=== PATIENT | female | born 1975 | race Caucasian/White ===

== ENCOUNTER → 2020-11-27 16:48 | Outpatient (CLI) | payer BC, SELFPAY ==
--- NOTE | ~2020-11-27 | MM_ITS ---
EXAMINATION: MM scrn agustin implant BI w astrid HISTORY: Screening mammogram TECHNIQUE: Craniocaudal and mediolateral oblique 3-D tomosynthesis images with implant displacement a nd synthetic 2-D images were generated. Craniocaudal and mediolateral oblique views of the breasts wi thout implant displacement were obtained using full field digital mammography. CAD analysis was submi tted and interpreted. COMPARISON: 03/25/2019 bilateral implant digital screening mammogram 10/12/2018 and 02/01/19352017 right diagnostic implant digital mammogram and right ultrasound examinati ons 02/16/2018, 02/03/2017 bilateral implant digital screening mammogram examinations BREAST PARENCHYMAL COMPOSITION: The breasts are heterogeneously dense, which may obscure small masses . FINDINGS: Status post bilateral augmentation mammoplasty. There is no evidence of suspicious mass, ca lcification, or architectural distortion to suggest malignancy in either breast. There has been no hernandez spicious interval change. IMPRESSION: 1. No mammographic evidence of malignancy. 2. Recommend routine screening mammography in one year. BI-RADS Category 1: Negative Reviewed, dictated and finalized at location A.
== END ==
DX: Z12.31 Encounter for screening mammogram for malignant neoplasm of breast (principal)
CPT/HCPCS: 77063; 77067

== ENCOUNTER → 2022-02-28 11:13 | Outpatient (CLI) | payer BC, SELFPAY ==
--- NOTE | ~2022-02-28 | MM_ITS ---
EXAMINATION: MM scrn agustin implant BI w astrid HISTORY: Screening mammogram TECHNIQUE: Craniocaudal and mediolateral oblique 3-D tomosynthesis images with implant displacement a nd synthetic 2-D images were generated. Craniocaudal and mediolateral oblique views of the breasts wi thout implant displacement were obtained using full field digital mammography. CAD analysis was submi tted and interpreted. COMPARISON: Comparison to multiple prior studies sequentially, with oldest reviewed study dated 01/2017. BREAST PARENCHYMAL COMPOSITION: The breasts are heterogenously dense, which may obscure small masses FINDINGS: There is no evidence of suspicious mass, calcification, or architectural distortion to sugg est malignancy in either breast. There has been no suspicious interval change. IMPRESSION: 1. No mammographic evidence of malignancy. 2. Recommend routine screening mammography in one year. BI-RADS Category 1: Negative Reviewed, dictated and finalized at location A.
== END ==
DX: Z12.31 Encounter for screening mammogram for malignant neoplasm of breast (principal)
CPT/HCPCS: 77063; 77067

== ENCOUNTER 2023-05-29 00:22 | Day surgery (SDC) | payer BC, SELFPAY ==
[2023-05-17 14:21] VITALS: BMI 27.5
[2023-05-29 08:20] VITALS: BP 110/68; PULSE 73; RESP 18; TEMP 36.5; O2SAT 100
[2023-05-29] MEDS: LACTATED RINGERS 1,000 ML 150 ML IV CONT (08:29)
--- NOTE | 2023-05-29 08:42 | PM.HPGS ---
History of Present Illness History of Present Illness Consent: Risks, benefits, and alternatives have been discussed and questions answered. Patient agrees to proceed with procedure. Chief complaint: neoplasm screening Narrative: Zoe Fox is a 48 year old female here for first screening colonoscopy Review of Systems Constitutional: Constitutional: Denies headache(s) and Denies weakness Eyes: Eyes: Denies blurry vision ENT: Reports Normal hearing present, Denies headache(s) and Denies neck pain Cardiovascular: Cardiovascular: Denies chest pain and Denies dyspnea Respiratory: Respiratory: Denies dyspnea Gastrointestinal: Gastrointestinal: Reports no additional gastrointestinal complaints Genitourinary: Genitourinary: Denies dysuria Musculoskeletal: Musculoskeletal: Denies neck pain Integumentary/Breasts: Skin/Breast: Denies dry skin Neurologic: Reports Normal hearing present, Denies headache(s) and Denies weakness Psychiatric: Psychiatric: Denies anxiety Endocrine: Endocrine: Denies change in body appearance Hematologic/Lymphatic: Hematologic/Lymphatic: Denies easy bleeding Allergic/Immunologic: Allergic/Immunologic: Denies urticaria [facility] Past Medical History Medical History (Updated 05/29/23 @ 08:43 by Rogerio Malik MD) Colon cancer screening Social History Social History (System 08/13/21 @ 12:03 by David López) Smoking status: Never smoker Alcohol intake: current Drinks per week: 2 Alcohol use details: DRINKS Substance use: current Substance use type: does not use Living arrangements: with family Spiritual care concerns: No Meds Home Medications and Allergies Home Medications Medication Instructions Recorded Confirmed Type No Home Medications 05/17/23 05/17/23 History Allergies Allergy/AdvReac Type Severity Reaction Status Date / Time No Known Allergies Allergy Verified 05/29/23 08:13 Vital Signs Vital Signs - 24 hr 05/29/23 08:20 Temperature 97.7 F Pulse Rate 73 Respiratory Rate 18 Blood Pressure 110/68 Pulse Oximetry 100 Oxygen Delivery Room Air Exam Const: General: comfortable and no acute distress HENMT: Face/Nose/Sinus: Normal nares present Eyes: General: appearance normal, both eyes and all related structures Neck: Neck: no JVD Resp: Auscultation: clear to auscultation bilaterally Cardio: Rate: regular rate Rhythm: regular rhythm GI: Inspection: non-distended GI Palp: Yes Soft to palpation Skin: General skin exam: normal color Neuro: General: gait normal Speech: normal speech Extrem: General: normal to inspection Psych: Mental Status: mental status grossly normal Assessment and Plan Assessment and plan (1) Colon cancer screening: Code(s): Z12.11 - Encounter for screening for malignant neoplasm of colon Status: Acute Assessment and Plan: colonoscopy
--- NOTE | 2023-05-29 08:42 | WPDANESEPPF ---
Anes - Initial Pre Proc Eval Procedure: Operation Date: 05/29/23 09:30 Proposed Procedures p Screening Colonoscopy - Rogerio Malik MD Date/Time: 05/29/23 08:42 Surgeon: Rogerio Malik MD Pre Op Diagnosis: neoplasm screening Patient Data Age: 48 Gender: F Height: 1.63 m Weight: 72.7 kg Last Vital Signs Temp 97.7 F 05/29/23 08:20 Pulse 73 05/29/23 08:20 Resp 18 05/29/23 08:20 BP 110/68 05/29/23 08:20 Pulse Ox 100 05/29/23 08:20 O2 Del Method Room Air 05/29/23 08:20 Allergies Allergy/AdvReac Type Severity Reaction Status Date / Time No Known Allergies Allergy Verified 05/29/23 08:13 Home Medications Medication Instructions Recorded Confirmed Type No Home Medications 05/17/23 05/17/23 History Patient hx anesthesia problems: none Family hx anesthesia problems: none Results Review: All pre-operative results and documents have been reviewed as part of the pre-operative evaluation. [facility] Past Medical History Medical History (Updated 05/29/23 @ 08:43 by Rogerio Malik MD) Colon cancer screening Social History Social History (System 08/13/21 @ 12:03 by David López) Smoking status: Never smoker Alcohol intake: current Drinks per week: 2 Alcohol use details: DRINKS Substance use: current Substance use type: does not use Living arrangements: with family Spiritual care concerns: No Anes - Eval Final PreProcedure Day of Procedure 05/29/23 08:42 Patient weight: overweight Airway: Mallampati scale class II ASA classification: II Anesthesia type and monitoring: general GIVS and standard monitoring Results Review: All pre-operative results and documents have been reviewed as part of the pre-operative evaluation. Informed Consent: The patient's anesthetic plan and its attendant risks and benefits were discussed with the patient/family/POA. Questions were solicited and answers provided to the satisfaction of the patient/family/POA.
[2023-05-29 09:01] VITALS: BP 95/63; PULSE 62; RESP 19; O2SAT 100
[2023-05-29 09:11] VITALS: BP 108/73; PULSE 60; RESP 18; O2SAT 100
[2023-05-29 09:21] VITALS: BP 117/75; PULSE 61; RESP 15; O2SAT 100
== END 2023-05-29 09:26 | disposition home or self-care (01) ==
PROVIDERS: Visit Provider Internal Medicine Gastroenterology
PROC: 0DJD8ZZ Inspection of Lower Intestinal Tract, Via Natural or Artificial Opening Endoscopic (ICD-10-PCS; CPT 45378; principal; 2023-05-29 09:30)
DX: Z12.11 Encounter for screening for malignant neoplasm of colon (principal); K57.30 Diverticulosis of large intestine without perforation or abscess without bleeding; K63.5 Polyp of colon; K64.4 Residual hemorrhoidal skin tags; K64.8 Other hemorrhoids
CPT/HCPCS: 45380; 88305; J2704; J7120

== ENCOUNTER 2023-10-27 10:40 | Outpatient (CLI) | payer BC, SELFPAY ==
--- NOTE | ~2023-10-27 | MM_ITS ---
EXAMINATION: MM scrn agustin implant BI w astrid HISTORY: Screening mammogram TECHNIQUE: Craniocaudal and mediolateral oblique 3-D tomosynthesis images with implant displacement a nd synthetic 2-D images were generated. Craniocaudal and mediolateral oblique views of the breasts wi thout implant displacement were obtained using full field digital mammography. CAD analysis was submi tted and interpreted. COMPARISON: 02/28/2022, 11/27/2020 bilateral implant screening mammogram examinations BREAST PARENCHYMAL COMPOSITION: The breasts are heterogeneously dense, which may obscure small masses . FINDINGS: Status post bilateral augmentation mammoplasty. Comparison 12 mm partially circumscribed mass is noted in the upper outer right breast. 6 mm incompletely circumscribed mass versus focal fibroglandular stroma hs suggested in the posterior mid to upper left breast on MLO view. Bilateral diagnostic mammography and breast ultrasound examination are recommended IMPRESSION: 1. Right breast mass, possible left breast mass 2. Bilateral diagnostic mammography and breast ultrasound examination are recommended BI-RADS Category 0: Incomplete: Needs additional imaging evaluation. Reviewed, dictated and finalized at location A. IMPRESSION: 1. Right breast mass, possible left breast mass 2. Bilateral diagnostic mammography and breast ultrasound examination are recom mended BI-RADS Category 0: Incomplete: Needs additional imaging evaluation.
== END 2023-10-27 10:41 ==
DX: Z12.31 Encounter for screening mammogram for malignant neoplasm of breast (principal); R92.8 Other abnormal and inconclusive findings on diagnostic imaging of breast
CPT/HCPCS: 77063; 77067

== ENCOUNTER 2023-11-27 08:26 | Outpatient (CLI) | payer BC, SELFPAY ==
--- NOTE | ~2023-11-27 | MMUS_ITS ---
EXAMINATION: MM diag agustin implant BI w astrid, US breast BI complete HISTORY: Right and possible left breast masses reported on 10/27/2023 screening mammogram examination TECHNIQUE: Additional 3-D tomosynthesis images of the breasts were performed and synthetic 2-D images were generated. CAD analysis was submitted and interpreted. High resolution complete bilateral breas t ultrasound examination coronal 4 quadrants and subareolar area in each breast was performed. COMPARISON: 10/27/2023 bilateral implant screening mammogram BREAST PARENCHYMAL COMPOSITION: The breasts are heterogeneously dense, which may obscure small masses . FINDINGS: MAMMOGRAPHIC FINDINGS: An approximately 11 mm low-density mass is noted in the mid to posterior aspect of the upper outer ri ght breast. No suspicious mammographic mass or shadowing of either breast is noted. The heterogeneously straw may obscure masses in either breast. ULTRASOUND: Right breast: 1-2 o'clock 6 cm from nipple: Well-circumscribed hypoechoic 4.6 x 2.2 x 4.2 mm lesion without internal vascularity or posterior sha dowing, benign in appearance 3:00 4 cm from nipple: Well-circumscribed complex mixed cystic and solid lesion, measuring 2.9 x 7.4 x 7.3 mm, without inter nal vascularity or posterior shadowing, benign in appearance 6:00 subareolar area: 2.5 x 3.4 x 2.3 mm circumscribed sonolucency, likely a simple cyst 10:00 9 cm from nipple: 11 x 10 x 12.5 mm circumscribed sonolucency with through transmission posteri or enhancement, consistent with simple cyst Left breast: 1:00 10 cm from nipple: 1.9 x 2.6 x 3.6 mm circumscribed parallel hypoechoic lesion without internal vascularity or posterior shadowing, benign in appearance 1:00 8 cm from nipple: 2.8 x 2.6 mm circumscribed sonolucent lesion without posterior shadowing 1:00 8 cm from nipple: 3 x 8 mm well-circumscribed septated cyst, with through transmission, benign i n appearance 1:00 8 cm from nipple: Oval circumscribed 2.3 x 3.8 mm cyst 1:00 7 cm from nipple: 3 x 3.8 mm cyst 10:00 7 cm from nipple: Oval circumscribed 7 x 4.5 x 7.6 mm, consistent with cyst with through transm ission and posterior enhancement , no internal vascularity 11:00 7 cm from nipple: 4 x 7 x 10 mm parallel circumscribed multi septated cyst, without internal va scularity or posterior shadowing IMPRESSION: 1. Bilateral benign findings 2. Routine annual mammographic screening is recommended BI-RADS Category 2: Benign finding(s). Reviewed, dictated and finalized at location A. IMPRESSION: 1. Bilateral benign findings 2. Routine annual mammographic screening is recommended BI-RADS Category 2: Benign finding(s).
== END 2023-11-27 08:27 ==
LOC: MICIMG 08:30
DX: R92.2 Inconclusive mammogram (principal)
CPT/HCPCS: 76641; 77062; 77066; G0279